=== PATIENT | male | born 1970 | race Caucasian/White ===

== ENCOUNTER 2019-02-25 09:40 | Emergency (ER) | payer OTHER ==
[~2019-02-25] VITALS: Ht 170.2 cm; Wt 76.2 kg
[2019-02-25] MEDS ORDERED: GENVOYA TABLET1 EACH PO (10:07)
[2019-02-25] MEDS ORDERED: ATORVASTATIN CA10 MG PO (10:07)
== END 2019-02-25 13:16 | disposition home or self-care (01) ==
LOC: ER 09:40
DX: S61.222A Laceration with foreign body of right middle finger without damage to nail, initial encounter (principal); S61.224A Laceration with foreign body of right ring finger without damage to nail, initial encounter; W01.110A Fall on same level from slipping, tripping and stumbling with subsequent striking against sharp glass, initial encounter; Y93.89 Activity, other specified; Y92.488 Other paved roadways as the place of occurrence of the external cause; Y99.8 Other external cause status